=== PATIENT | male | born 1965 | race African-American/Black ===

== ENCOUNTER 2024-08-08 16:20 | Emergency (ER) | payer SELFPAY ==
[~2024-08-08] VITALS: Ht 177.8 cm; Wt 81.8 kg
[2024-08-08 17:41] LABS: BILIRUBIN Negative (Negative); BLOOD Trace-Lysed (Negative); CLARITY Clear (Clear); COLOR Yellow (Yellow); GLUCOSE Negative (Negative); KETONE Trace (Negative); LEUKO ESTERASE Negative (Negative); NITRITE Negative (Negative); PH 5.5 (4.5-8.0); SPECIFIC GRAVITY <= 1.005 (1.001-1.030); UROBILINOGEN 0.2 E.U./dl (0.0-1.0)
[2024-08-08 17:44] LABS: BASO % 0.4 % (0.0-1.0); EOS # 0.1 10*3/uL (0.0-0.4); EOS % 0.6 % (1.0-4.0); HEMATOCRIT 41.5 % (42.0-52.0); MEAN CELL VOLUME 87.2 fl (80.0-94.0); MEAN CORPUSCULAR HGB 28.2 pg (27.0-31.0); MEAN CORPUSCULAR HGB CONC 32.3 g/dl (33.0-37.0); MONO # 1.1 10*3/uL (0.1-1.0); MONO % 10.4 % (3.0-9.0); NEUT # 6.7 10*3/uL (2.3-7.9); PLATELET COUNT AUTOMATED 295 10*3/uL (130-400); RED BLOOD COUNT 4.76 10*6/uL (4.50-5.90); WHITE BLOOD COUNT 10.5 10*3/uL (4.8-10.8)
[2024-08-08 17:53] LABS: RBC 0-2 rbc/hpf (0-2); WBC 0-2 wbc/hpf (0-5)
[2024-08-08 18:04] LABS: ALKALINE PHOSPHATASE 73 U/L (46-116); BUN 11 mg/dl (9-23); CHLORIDE 101 mmol/L (98-107); LIPASE 37 U/L (12-53); POTASSIUM 3.9 mmol/L (3.4-5.1); SGPT/ALT 103 U/L (5-49); TOTAL PROTEIN 7.7 gm/dL (6.0-8.0)
[2024-08-08] MEDS ORDERED: OMEPRAZOLE40 MG PO (18:42)
== END 2024-08-08 19:10 | disposition home or self-care (01) ==
LOC: ED 16:20
PROVIDERS: Nurse Practitioner Family
DX: K59.00 Constipation, unspecified (principal); K21.9 Gastro-esophageal reflux disease without esophagitis; R31.9 Hematuria, unspecified

== ENCOUNTER 2024-08-12 20:57 | Emergency (ER) | payer SELFPAY ==
[~2024-08-12] VITALS: Ht 180.3 cm; Wt 81.6 kg
[~2024-08-12 20:57] MED LIST: OMEPRAZOLE40 MG PO
== END 2024-08-12 21:59 | disposition home or self-care (01) ==
LOC: ED 20:57
DX: R14.1 Gas pain (principal); K59.00 Constipation, unspecified

== ENCOUNTER 2024-08-21 07:19 | Emergency (ER) | payer SELFPAY ==
[~2024-08-21] VITALS: Ht 175.2 cm; Wt 83.0 kg
[2024-08-21] MEDS ORDERED: SODIUM CHLORIDE 0.9% 1,000 ML IV ONE ×2 (07:50→08:16)
[2024-08-21 08:09] LABS: BASO % 0.4 % (0.0-1.0); EOS # 0.1 10*3/uL (0.0-0.4); EOS % 0.5 % (1.0-4.0); HEMATOCRIT 42.3 % (42.0-52.0); MEAN CELL VOLUME 85.5 fl (80.0-94.0); MEAN CORPUSCULAR HGB 27.5 pg (27.0-31.0); MEAN CORPUSCULAR HGB CONC 32.2 g/dl (33.0-37.0); MEAN PLATELET VOLUME 9.8 fl (9.6-12.3); MONO # 0.7 10*3/uL (0.1-1.0); MONO % 7.7 % (3.0-9.0); NEUT # 6.7 10*3/uL (2.3-7.9); NEUT % 70.2 % (47.0-73.0); PLATELET COUNT AUTOMATED 289 10*3/uL (130-400); RED BLOOD COUNT 4.95 10*6/uL (4.50-5.90); RED CELL DISTRI WIDTH 13.2 % (0-14.5); WHITE BLOOD COUNT 9.6 10*3/uL (4.8-10.8)
[2024-08-21 08:30] LABS: ALKALINE PHOSPHATASE 75 U/L (46-116); BUN 10 mg/dl (9-23); CHLORIDE 101 mmol/L (98-107); LDH 203 U/L (120-246); LIPASE 40 U/L (12-53); POTASSIUM 4.1 mmol/L (3.4-5.1); SGPT/ALT 42 U/L (5-49); TOTAL PROTEIN 7.6 gm/dL (6.0-8.0)
[2024-08-21] MEDS ORDERED: COLACE100 MG PO (09:15)
[2024-08-21 09:16] LABS: BILIRUBIN Negative (Negative); BLOOD Negative (Negative); CLARITY Clear (Clear); COLOR Yellow (Yellow); GLUCOSE Negative (Negative); KETONE Negative (Negative); LEUKO ESTERASE Negative (Negative); NITRITE Negative (Negative); PH 6.5 (4.5-8.0); SPECIFIC GRAVITY <= 1.005 (1.001-1.030); UROBILINOGEN 0.2 E.U./dl (0.0-1.0)
[2024-08-21 09:25] LABS: EPITHELIAL CELLS 0-2
== END 2024-08-21 09:47 | disposition home or self-care (01) ==
LOC: ED 07:19
PROVIDERS: Emergency Medicine
DX: K59.00 Constipation, unspecified (principal)